=== PATIENT | female | born 2000 | race Caucasian/White ===

== ENCOUNTER 2022-10-30 10:22 | Outpatient (CLI) | payer OTHER, SELFPAY ==
[2022-10-30 14:05] LABS: Albumin* 4.8 g/dL (3.3-5.0); Chloride* 103 mmol/L (96-114); Potassium* 4.1 mmol/L (3.6-5.1); Sodium* 141 mmol/L (135-149)
[2022-10-30 14:08] LABS: Alanine Aminotransferase* 14 U/L (4-35); Alkaline Phosphatase* 62 U/L (40-150); Aspartate Amino Transferase* 21 U/L (12-35); Bilirubin Total* 0.7 mg/dL (0.1-1.5); Blood Urea Nitrogen* 12 mg/dL (5-24); Carbon Dioxide* 28 mmol/L (20-32); Creatinine* 0.7 mg/dL (0.5-1.5); Estimated Glomerular Filt Rate 127 ml/min; Glucose* 91 mg/dL (60-115); Total Protein* 7.4 g/dL (6.0-8.3)
[2022-10-30 14:49] LABS: HIV 1/2/P24 Combo Screen* Negative (Negative)
[2022-10-30 15:19] LABS: Vitamin B12* < 159 pg/mL (243-894)
[2022-10-31 22:46] LABS: Rapid Plasma Reagin (RPR) Non Reactive (Non Reactive)
== END 2022-10-30 10:23 | disposition home or self-care (01) ==
PROVIDERS: PCP Family Medicine; Visit Provider Family Medicine
DX: Z00.00 Encounter for general adult medical examination without abnormal findings (principal); Z79.899 Other long term (current) drug therapy; Z11.3 Encounter for screening for infections with a predominantly sexual mode of transmission; F41.9 Anxiety disorder, unspecified
CPT/HCPCS: 80053; 82607; 86592; 86703

== ENCOUNTER 2023-09-23 16:24 | Outpatient (CLI) | payer OTHER, SELFPAY | END 2023-09-23 16:25 | disposition home or self-care (01) | PROVIDERS: PCP Family Medicine; Visit Provider Family Medicine | DX: M25.561 Pain in right knee (principal) | CPT/HCPCS: 85379; 86140 ==

== ENCOUNTER 2023-10-29 14:32 | Outpatient (CLI) | payer OTHER, SELFPAY ==
--- NOTE | 2023-10-29 14:45 | CRLHL7_ITS ---
For Patients: As a result of the Century Cures Act, medical imaging exams and procedure reports are released immediately into your electronic medical record. You may view this report before your referring provider. If you have questions, please contact your health care provider. HISTORY: Right knee pain. TECHNIQUE: Routine knee protocol. FINDINGS: Medial compartment: Medial meniscus: The medial meniscus is intact without evidence for tearing. Articular cartilage: The articular cartilage surfaces are smooth and normally maintained. Lateral compartment: Lateral meniscus: The lateral meniscus is intact without evidence for tearing. Articular cartilage: The articular cartilage surfaces are smooth and normally maintained. Patellofemoral compartment: The articular cartilage surfaces are smooth and normally maintained. In the extended nonweightbearing position there is mild lateral tilting of the patella. No subluxation is noted. Ligaments: The anterior cruciate, posterior cruciate, medial collateral and lateral collateral ligaments are intact. Extensor mechanism: The quadriceps and patellar tendons are intact. There is an elongated appearance to the patellar tendon consistent with patella malgorzata deformity. Bones and soft tissues: No findings for transcortical or osteochondral fracture. No joint effusion or loose body is noted. The popliteus muscle belly and tendon as well as the hamstring tendons and iliotibial band are intact. 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 No meniscus or ligament tear is noted. Dictated by Juliocesar Stack MD @ 10/30/2023 1:50:42 PM (Electronically Signed)
== END 2023-10-29 14:33 | disposition home or self-care (01) ==
PROVIDERS: PCP Family Medicine; Visit Provider Family Medicine
DX: M25.561 Pain in right knee (principal)
CPT/HCPCS: 73721

== ENCOUNTER 2024-11-12 13:26 | Outpatient (CLI) | payer OTHER, SELFPAY ==
[2024-11-13 03:14] LABS: Chlamydia DNA Amplified* NOT DETECTED (No Detected); GC DNA Amplified* NOT DETECTED (No Detected)
== END 2024-11-12 13:27 | disposition home or self-care (01) ==
PROVIDERS: PCP Family Medicine; Visit Provider Family Medicine
DX: Z11.3 Encounter for screening for infections with a predominantly sexual mode of transmission (principal); Z13.6 Encounter for screening for cardiovascular disorders; Z13.21 Encounter for screening for nutritional disorder
CPT/HCPCS: 80053; 80061; 82607; 86592; 86703; 87491; 87591

== ENCOUNTER 2025-10-19 14:38 | Outpatient (CLI) | payer OTHER, SELFPAY ==
--- NOTE | 2025-10-26 13:59 | W.PM.SLEEP ---
Sleep Study Details Details Interpreting Provider: Gilda Date of Sleep Study: 10/19/25 Sleep Study Details: STUDY TYPE:? Home unattended ? BMI:? 22.59 ORDERING PROVIDER:Rhiannon Ordoñez INDICATION:? Concern for sleep apnea ? SLEEP SUMMARY:? 495 minutes monitored RESPIRATORY SUMMARY:? AHI 5.2 per rule 1A, 3.5 per CMS guideline Low oxygen 84 0.2% of study oxygen less than 90% Snoring 84.8% PERIODIC LIMB MOVEMENTS OF SLEEP:? Not recorded CARDIAC:? Range 54-114, mean 69.3 beats per minute IMPRESSION:? Mild obstructive sleep apnea RECOMMENDATION: Treatment options include CPAP dental appliance and/or airway expansion surgery.
== END 2025-10-19 14:39 | disposition home or self-care (01) ==
LOC: SLEEP 14:39
PROVIDERS: PCP Family Medicine; Visit Provider Family Medicine
DX: G47.33 Obstructive sleep apnea (adult) (pediatric) (principal)
CPT/HCPCS: 95806